=== PATIENT | male | born 1995 | race Caucasian/White ===

== ENCOUNTER 2023-08-01 19:22 | Emergency (ER) | payer SELFPAY | END 2023-08-01 20:43 | disposition home or self-care (01) | LOC: ERS 19:22 | DX: S60.041A Contusion of right ring finger without damage to nail, initial encounter (principal); S60.031A Contusion of right middle finger without damage to nail, initial encounter; F17.290 Nicotine dependence, other tobacco product, uncomplicated; W22.8XXA Striking against or struck by other objects, initial encounter ==